=== PATIENT | female | born 1975 ===

== ENCOUNTER → 2022-02-16 | Outpatient (CLI) | payer BC | END | disposition home or self-care (01) | LOC: SHCH 10:38 | PROVIDERS: ATTEND Internal Medicine Cardiovascular Disease | DX: I11.9 Hypertensive heart disease without heart failure (principal); R07.9 Chest pain, unspecified | CPT/HCPCS: 93306 ==

== ENCOUNTER → 2023-08-09 | Outpatient (CLI) | payer BC ==
[~2023-08-09] MED LIST: IOHEXOL 350 MG/ML 100ML INFUS..BTL IV ONE; METOPROLOL TARTRATE 1 MG/ML 5ML VIAL IV ONE
== END | disposition home or self-care (01) ==
LOC: RAH 13:08
PROVIDERS: ATTEND Internal Medicine Cardiovascular Disease
DX: R07.9 Chest pain, unspecified (principal); I25.10 Atherosclerotic heart disease of native coronary artery without angina pectoris; M47.815 Spondylosis without myelopathy or radiculopathy, thoracolumbar region
CPT/HCPCS: 75574; J3490; Q9967